=== PATIENT | female | born 1965 | race Hispanic/Latino ===

== ENCOUNTER 2018-07-19 15:39 | Emergency (ER) | payer OTHER ==
[~2018-07-19] VITALS: Ht 160 cm; Wt 59.0 kg
[~2018-07-19 15:39] MED LIST: KLONOPIN2 MG; LYRICA200 MG PO; Z.0.AMBIEN10 MG; Z.0.NORCO 10-325 T1; Z.0.PHENERGAN25 M1; Z.0.VICODIN 5-5001 E
[2018-07-19] MEDS ORDERED: KETOROLAC TROMETHAMINE 30 MG/ML VIAL IV STA (18:22)
[2018-07-19] MEDS ORDERED: SODIUM CHLORIDE 0.9% 500ML 500 ML IV ONE (18:30)
[2018-07-19] MEDS ORDERED: DIPHENHYDRAMINE HCL INJ 50 MG/ML VIAL IV ONE (18:30)
--- NOTE | 2018-07-19 18:58 | Diagnostic Imaging Report ---
EXAMINATION: Head CT HISTORY: Severe headache for the last 3 days COMPARISON: None. TECHNIQUE: Multidetector axial images were obtained without contrast from the foramen magnum to the vertex . The images were reconstructed using brain and bone algorithms. Thin section brain images were reformatted into coronal and sagittal planes. Intravenous contrast: None. Image quality: Motion/streaking artifact limits the evaluation of the skull base and posterior cranial fossa. Dose modulation, iterative reconstruction, and/or weight based adjustment of the mA/kV was utilized to reduce the radiation dose to as low as reasonably achievable. FINDINGS: Parenchyma: 1. No abnormal densities. 2. No mass or hemorrhage. No CT evidence of acute territorial vascular insult. Extra-axial spaces:No abnormal density. No extra-axial fluid collections Brain volume: Normal for age. Ventricles: No hydrocephalus or displacement. Arteries: No density suggestive of thrombus. Dural sinuses: No abnormal density. Extra-axial spaces: No abnormal density. Foramen magnum: No mass, Chiari malformation, or basilar invagination. Sella: No obvious mass. Paranasal/mastoid sinuses: Partial opacification of the left partially visualized left posterior ethmoidal and left sphenoid sinuses, otherwise clear. Skull/Scalp: No lytic or blastic lesions. No fractures. IMPRESSION: 1. No intracranial abnormalities, particularly no hemorrhage. 2. Partial opacification of the paranasal sinuses as described. Signed by: Dr. Ayah Ghotra M.D. on 07/19/2018 6:54 PM
[2018-07-19] MEDS ORDERED: AUGMENTIN 500-1 EACH PO (21:22)
[2018-07-19 21:34] VITALS: BP 134/77
== END 2018-07-19 21:44 | disposition home or self-care (01) ==
LOC: ER 15:39
DX: J01.10 Acute frontal sinusitis, unspecified (principal); R51 Headache; E11.9 Type 2 diabetes mellitus without complications; E78.5 Hyperlipidemia, unspecified
CPT/HCPCS: 70450; 99283; J1200; J1885; J7040

== ENCOUNTER 2025-02-02 10:18 | Emergency (ER) | payer BC ==
[~2025-02-02] VITALS: Ht 162.6 cm; Wt 108.9 kg
[~2025-02-02 10:18] MED LIST changes: +AUGMENTIN 500-1 EACH PO; +AZITHROMYCIN250 MG PO; +MEDROL4 M2 PO; +PREDNISONE20 MG PO; +VENTOLIN HFA18 GM INH
[2025-02-02 10:22] VITALS: PULSE 90; RESP 16; TEMP 96.8; O2SAT 100
[2025-02-02] MEDS ORDERED: GOLYTELY SOLU4000 M1 PO (10:45)
== END 2025-02-02 11:53 | disposition home or self-care (01) ==
LOC: ER 10:22
DX: K59.00 Constipation, unspecified (principal); I10 Essential (primary) hypertension; E11.9 Type 2 diabetes mellitus without complications; E78.5 Hyperlipidemia, unspecified; K86.9 Disease of pancreas, unspecified; G89.4 Chronic pain syndrome; F41.9 Anxiety disorder, unspecified; F32.A Depression, unspecified
CPT/HCPCS: 99283

== ENCOUNTER 2025-07-14 12:09 | Emergency (ER) | payer BC ==
[~2025-07-14] VITALS: Ht 162.6 cm; Wt 108.9 kg
[~2025-07-14 12:09] MED LIST changes: +GOLYTELY SOLU4000 M1 PO
[2025-07-14 12:15] VITALS: TEMP 98
[2025-07-14 13:10] LABS: BASOPHILS % 0.4 % (0.0-1.0); EOSINOPHILS % 1.3 % (0.0-6.0); LYMPHOCYTES % 25.4 % (18.0-39.1); MONOCYTES % 6.0 % (4.4-11.3); NEUTROPHILS % 66.7 % (38.7-80.0); RED CELL DISTRIBUTION WIDTH 14.6 % (11.7-14.4)
[2025-07-14 13:11] LABS: LEUKOCYTE ESTERASE ,URINE NEGATIVE (NEGATIVE); PROTEIN,URINE DIPSTICK 1+ (NEGATIVE); URINE UROBILINOGEN 0.2 mg/dL (0.2 - 1)
[2025-07-14 13:13] LABS: EPITHELIAL CELLS,URINE FEW /LPF; WBC,URINE (MAN) 0-5 /HPF (0-5)
[2025-07-14 13:15] LABS: INR 0.97
[2025-07-14 13:22] LABS: EST GLOMERULAR FILTRATION RATE 100 ML/MIN (>=60)
[2025-07-14 13:36] LABS: CORONAVIRUS COVID-19 AG NEGATIVE (NEGATIVE)
[2025-07-14 13:50] VITALS: PULSE 72; RESP 18
[2025-07-14] MEDS: SODIUM CHLORIDE 0.9% 1000ML 1,000 ML IV STA (13:56)
[2025-07-14 15:47] VITALS: BP 129/65; PULSE 73; RESP 18; TEMP 98.4; O2SAT 98
== END 2025-07-14 15:28 | disposition home or self-care (01) ==
LOC: ER 12:28
DX: R53.1 Weakness (principal); R53.83 Other fatigue; I10 Essential (primary) hypertension; E11.65 Type 2 diabetes mellitus with hyperglycemia; E78.5 Hyperlipidemia, unspecified; F41.9 Anxiety disorder, unspecified; F32.A Depression, unspecified; G89.4 Chronic pain syndrome
CPT/HCPCS: 36415; 71045; 80053; 81001; 83735; 84484; 85025; 85610; 85730; 87428; 93005; 99284; J7030